=== PATIENT | female | born 1980 | race Hispanic/Latino ===

== ENCOUNTER 2021-02-27 10:24 | Day surgery (SDC) | payer OTHER ==
[2021-02-27] MEDS ORDERED: SODIUM CHLORIDE 0.9% 1000 ML 1,000 ML IV SCH (11:00)
--- NOTE | 2021-02-27 11:22 | Anesthesia Consultation ---
Anesthesia Consult and Med Hx Date of service: 02/27/21 - Airway Anesthetic Teeth Evaluation: Good ROM Head & Neck: Adequate Mental/Hyoid Distance: Adequate Mallampati Class: Class II Intubation Access Assessment: Probably Good - Pulmonary Exam CTA: Yes - Cardiac Exam Cardiac Exam: RRR - Pre-Operative Health Status ASA Pre-Surgery Classification: ASA3 Proposed Anesthetic Plan: MAC - Pulmonary Hx Smoking: Yes (1/2 ppd) Hx Asthma: Yes (last used inhaler 6 months ago) Hx Respiratory Symptoms: No COPD: Yes Hx Sleep Apnea: No - Cardiovascular System Hx Hypertension: No Hx Coronary Artery Disease: No - Central Nervous System Hx Neuromuscular Disorder: No (Hx Lupus, sjogrens, rheumatoid arthritis) - Endocrine Hx Renal Disease: No Hx Liver Disease: Yes (Hx acute liver failure due to medication - resolved) - Other Systems Hx Alcohol Use: No Hx Substance Use: No Hx Cancer: No Hx Obesity: No - Additional Comments Anesthesia Medical History Comments: No hx of anesthetic complications
--- NOTE | 2021-02-27 11:23 | Anesthesia Day of Surgery ---
Anesthesia Day of Surgery - Day of Surgery Patient Examined: Yes Patient H&P Reviewed: Yes Patient is NPO: Yes
[2021-02-27] MEDS ORDERED: LIDOCAINE 2% UROJECT 10 ML JELLY UR ONE (11:53)
--- NOTE | 2021-02-27 12:07 | Procedure Note ---
Date of procedure: 02/27/21 Pre-op diagnosis: Hematochezia and Abdominal Pain Post-op diagnosis: other (R/O Microscopic Colitis/ R/O Ileitis/ Hematochezia secondary to Moderate Internal Hemorrhoids (s/p banding x 3)) Procedure: Colonoscopy with biopsy and Flexible Sigmoidoscopy with banding x3 Anesthesia: TRUONG Surgeon: LAVON ROWAN Estimated blood loss: minimal Pathology: list Specimen disposition: to lab Condition: stable Disposition: same day (Treat with Tramadol and prnBentyl; enourage the use of Sitz Bath and avoid aspirin and NSAID for 5 days, otherwise resume home medication. F/U in 1 to 2 weeks ([phone]).)
--- NOTE | 2021-02-27 12:23 | Operative Report ---
DATE OF SURGERY: 02/27/2021 PROCEDURE PERFORMED: Colonoscopy with biopsy. INDICATIONS: This is a 40-year-old white female with an underlying history of Sjogren syndrome, rheumatoid arthritis, who has lately been having some GI bleeding. Colonoscopy was done to assess for the source of the bleeding. DESCRIPTION OF PROCEDURE: Procedure was done after getting informed consent. The procedure was done with MAC anesthesia. Initial rectal examination showed presence of some external hemorrhoids and tags. The scope was introduced through the rectum onto the cecum, which was identified with ileocecal valve and the appendiceal orifice. Visualization was fair to good. The terminal ileum was intubated, showed normal mucosa. Biopsy was done to rule out for possible ileitis. Cecum, ascending colon, transverse colon, descending colon and sigmoid showed normal mucosa. Random biopsies were done to rule out for possible microscopic colitis. The rectum showed moderate internal hemorrhoid, which may have been the source of the patient's bleeding. ASSESSMENT: History of gastrointestinal bleeding, moderate internal hemorrhoids, possible source of gastrointestinal bleeding external hemorrhoids, rule out microscopic colitis, rule out ileitis. No colon polyps or diverticular disease noted. PLAN: To have the patient avoid aspirin and aspirin-related products for the next few days. Banding is to be done for treatment of the patient's hematochezia, possibly the patient will also be given tramadol to help with any pain associated with the banding. Procedure was done in the GI lab with assistance of the GI lab team, which included the GI nurse, the extractions technician and with assistance of Anesthesia. TID: [id number] RECEIPT: [id number] NAE
--- NOTE | 2021-02-27 12:30 | Operative Report ---
DATE OF SURGERY: 02/27/2021 PROCEDURE: Flexible sigmoidoscopy. INDICATIONS: This is a 40-year-old white female with an underlying history of Sjogren syndrome, rheumatoid arthritis. Colonoscopy did not show any significant abnormality of the colon mucosa. Random biopsies were done to rule out for microscopic colitis and for ileitis from the terminal ileum. DESCRIPTION OF PROCEDURE: Flexible sigmoidoscopy scope, which was the EGD scope mounted with the banding apparatus was introduced and retroflexed. Few of the largest bands were then suctioned into the suction channel and bands were applied to them with banding of 3 of the hemorrhoids. At the end of the procedure, lidocaine gel was injected into the rectal vault. ASSESSMENT: Hematochezia secondary to moderate internal hemorrhoids, status post banding x 3. PLAN: The patient will be given some tramadol to take for pain if needed and I have advised to take sitz bath and mineral oil also if needed and follow up in the office in 1-2 weeks' time. The patient will also be asked to avoid aspirin and aspirin-related products for the next few days. Procedure was done in the GI lab with assistance of the GI lab team, which included the GI nurse, the energy and conservation technician and with assistance of anesthesia. TID: [id number] RECEIPT: [id number] CLAUDIO
[2021-02-27 12:56] VITALS: BP 115/65
--- NOTE | 2021-02-27 16:48 | Post Anesthesia Evaluation ---
- Post Anesthesia Evaluation Patient Participated: Yes Airway Patent: Yes Stable Respiratory Function: Yes Nausea/Vomiting: No Temp > 96.8F: Yes Pain Manageable: Yes Adequeate Hydration: Yes Anesthesia Complications: No Block Receding Appropriately: Not Applicable Patient on Ventilator: No
== END 2021-02-27 12:50 | disposition home or self-care (01) ==
LOC: GIO 10:24
DX: K92.1 Melena (principal); R10.9 Unspecified abdominal pain; K64.8 Other hemorrhoids; K63.89 Other specified diseases of intestine; J44.9 Chronic obstructive pulmonary disease, unspecified; M19.90 Unspecified osteoarthritis, unspecified site; F17.210 Nicotine dependence, cigarettes, uncomplicated; Z79.899 Other long term (current) drug therapy; Z98.890 Other specified postprocedural states
CPT/HCPCS: 88305